=== PATIENT | male | born 1985 | race African-American/Black ===

== ENCOUNTER 2018-04-14 14:41 | Emergency (ER) | payer OTHER, MEDICAID, SELFPAY ==
[2018-04-14 14:51] VITALS: BP 107/56; PULSE 72; RESP 12; TEMP 36.8; O2SAT 98
--- NOTE | 2018-04-14 16:18 | ED.SKABFB ---
HPI - Skin/Abscess/Foreign Bdy <CORINE Conklin - Last Filed: 04/14/18 22:23> General Chief complaint: Skin/Abscess/Foreign Body Stated complaint: possible spider bite to lower right leg Time Seen by Provider: 04/14/18 16:18 History of Present Illness HPI narrative: Healthy 32-year-old male here for small area of redness with slight purulent discharge that he noticed today to his left lower extremity. He thinks he may have gotten bit by an insect. He states that is redness is limited to that area. He denies any fevers or chills. No known trauma to the area. He is ambulatory into the emergency room. No other concerns or complaints. MD complaint: insect bite/sting Related Data Previous Rx's Medication Instructions Recorded clindamycin HCl 300 mg PO QID #28 cap 04/14/18 Allergies Allergy/AdvReac Type Severity Reaction Status Date / Time No Known Drug Allergies Allergy Verified 04/14/18 16:34 Review of Systems <CORINE Conklin - Last Filed: 04/14/18 22:23> Constitutional Denies chills, Denies fever(s), Denies lethargy and Denies weakness Eyes Denies change in vision, Denies eye discharge, Denies irritation and Denies loss of vision ENT Ears, Nose, Mouth, and Throat: Denies change in voice, Denies neck pain and Denies sore throat Cardiovascular Denies chest pain, Denies irregular heart rhythm, Denies lightheadedness, Denies palpitations, Denies dyspnea, Denies dyspnea on exertion and Denies orthopnea Respiratory Denies cough, Denies dyspnea, Denies dyspnea on exertion and Denies wheezing Gastrointestinal Gastrointestinal: Denies abdominal pain, Denies change in bowel habits, Denies diarrhea, Denies nausea and Denies vomiting Genitourinary Denies hematuria, Denies flank pain, Denies urinary incontinence and Denies urinary urgency Musculoskeletal Denies neck pain Comments: Area of redness to his right lower extremity Integumentary/Breasts Denies pruritus, Denies erythema, Denies rash and Denies wounds Neurologic Denies confusion, Denies loss of vision and Denies weakness Psychiatric Denies anxiety, Denies confusion, Denies depression, Denies homicidal ideation and Denies suicidal ideation Endocrine Denies palpitations Hematologic/Lymphatic Denies easy bruising Allergic/Immunologic Denies wheezing Exam <CORINE Conklin - Last Filed: 04/14/18 22:23> Initial Vital Signs Initial Vital Signs: Vital Signs Temperature 98.2 F 04/14/18 14:51 Pulse Rate 72 04/14/18 14:51 Respiratory Rate 12 04/14/18 14:51 Blood Pressure 107/56 L 04/14/18 14:51 Pulse Oximetry 98 04/14/18 14:51 Const General: cooperative and well developed Nutritional Appearance: well nourished Orientation: alert, awake, oriented x3 and not confused [facility] [place] Mouth: oral mucosae normal and moist mucous membranes Eyes General: appearance normal, both eyes and all related structures Eyelids: eyelids normal Conjunctivae: conjunctivae normal Sclera: sclerae normal Pupils: PERRL EOM: EOM intact bilaterally Resp Effort & Inspection: normal respiratory effort, able to speak in complete sentences, no respiratory distress and no use of accessory muscles Auscultation: clear to auscultation bilaterally, no rales, no rhonchi and no wheezes Cardio Rate: regular rate Rhythm: regular rhythm Heart Sounds: no click, no gallops, no murmurs and no rubs Pulses: normal peripheral pulses Skin Other: 2 cm area of erythema with slight swelling into the right wilson. Small area of excoriation to the central area of there are no fluctuance no induration distal CMS is intact Neuro General: alert, oriented x3, gait normal and no focal motor deficits Speech: speech normal Extrem General: full ROM, no clubbing, cyanosis or edema, no pedal edema and no calf tenderness <Jt Martinez DO - Last Filed: 04/15/18 08:33> Initial Vital Signs Initial Vital Signs: Vital Signs Temperature 98.2 F 04/14/18 14:51 Pulse Rate 72 04/14/18 14:51 Respiratory Rate 12 04/14/18 14:51 Blood Pressure 107/56 L 04/14/18 14:51 Pulse Oximetry 98 04/14/18 14:51 Course <CORINE Conklin - Last Filed: 04/14/18 22:23> Orders Ordered: Discontinued Medications Diphtheria/Tetanus/Acell Pertussis (Adacel) 0.5 ml IM .ONCE ONE Stop: 04/14/18 16:30 Last Admin: 04/14/18 16:34 Dose: 0.5 ml Vital Signs - 8 hr 04/14/18 14:51 04/14/18 16:44 Temperature 98.2 F Pulse Rate 72 66 Respiratory Rate 12 14 Blood Pressure 107/56 L 102/52 L Pulse Oximetry 98 98 <Jt Martinez DO - Last Filed: 04/15/18 08:33> Orders Ordered: Discontinued Medications Diphtheria/Tetanus/Acell Pertussis (Adacel) 0.5 ml IM .ONCE ONE Stop: 04/14/18 16:30 Last Admin: 04/14/18 16:34 Dose: 0.5 ml Vital Signs - 8 hr 04/14/18 14:51 04/14/18 16:44 Temperature 98.2 F Pulse Rate 72 66 Respiratory Rate 12 14 Blood Pressure 107/56 L 102/52 L Pulse Oximetry 98 98 MDM - Skin/Abscess/Foreign Bdy <CORINE Conklin - Last Filed: 04/14/18 22:23> MDM Narrative Medical decision making narrative: Signs and symptoms presents as starting small abscess to the right wilson patient states that he already drained purulent drainage from it earlier today by picking at it and squeezed it. Will treat with oral clindamycin ensure no spread. [id number] Tylenol Motrin as needed for any discomfort. Warm moist compresses to area. Follow up with primary care provider in the next 2 days for re-evaluation. For any worsening symptoms return emergency room. Discharge Plan Departure Patient Disposition: Home, Self-Care Clinical Impression: Abscess of right lower extremity Discharge Date/Time: 04/14/18 16:45 Interventions: ED Discharge Assessment Last Done: 04/14/18 16:44 Instructions: DI for Skin Abscess Activity Restrictions/Additional Instructions: Sinus symptoms presents as starting abscess to the right lower extremity. You prescribed an antibiotic to prevent further spread use as directed. [id number] Tylenol Motrin as needed for any discomfort. Warm moist compresses to the area few times a day for the next few days. Follow up with her primary care provider in the next few days for re-evaluation. For any worsening symptoms return to the emergency room. Prescriptions: New clindamycin HCl 300 mg capsule 300 mg PO QID Qty: 28 RF: 0 Referrals: [facility] [Provider Group] <Jt Martinez DO - Last Filed: 04/15/18 08:33> Cosign ED Attending Coshomeroature Attestation: I was immediately available in the department for consultation. Documentation has been reviewed. I agree with assessment and plan.
[2018-04-14] MEDS: TET,DIPH,PERTUSS(ACELL),VAC/PF 0.5 ML SYRINGE IM (16:34)
[2018-04-14 16:44] VITALS: BP 102/52; PULSE 66; RESP 14; O2SAT 98
== END 2018-04-14 16:45 | disposition home or self-care (01) ==
PROVIDERS: Emergency Provider Nurse Practitioner Family
DX: L02.415 Cutaneous abscess of right lower limb (principal)
CPT/HCPCS: 90471; 99282; 99283; 90715